=== PATIENT | female | born 1970 | race Caucasian/White ===

== ENCOUNTER → 2018-06-20 | Outpatient (CLI) | payer BC ==
--- NOTE | 2018-06-21 10:40 | MM ---
Reason for exam: screening (asymptomatic). Last mammogram was performed 2 years and 11 months ago. History: Patient is postmenopausal. Physical Findings: A clinical breast exam by your physician is recommended on an annual basis and results should be correlated with mammographic findings. MG Screening Mammo w CAD Bilateral CC and MLO view(s) were taken. Prior study comparison: July 22, 2015, bilateral MG screening mammo w CAD. March 04, 2010, bilateral digital screening mammogram. The breast tissue is heterogeneously dense. This may lower the sensitivity of mammography. There are benign appearing round calcifications in the right breast. There is no discrete abnormality. ASSESSMENT: Benign, BI-RAD 2 RECOMMENDATION: Routine screening mammogram of both breasts in 1 year.
== END | disposition home or self-care (01) ==
LOC: RADMAMWWP 13:12
PROVIDERS: ATTEND Pediatrics
DX: Z12.31 Encounter for screening mammogram for malignant neoplasm of breast (principal)
CPT/HCPCS: 77067

== ENCOUNTER 2023-05-28 12:39 | Day surgery (SDC) | payer BC, OTHER ==
[2023-05-18 11:34] VITALS: BMI 23.5
[~2023-05-28 12:39] MED LIST: LACTATED RINGERS 1,000 ML IV SCH; LIDOCAINE 1% (10MG/ML) FOR IV START INTRADERMA PRN
[2023-05-28 13:32] VITALS: TEMP 97.6
[2023-05-28] MEDS ORDERED: PROPOFOL 10 MG/ML 20 ML VIAL IV ONE (14:40)
--- NOTE | 2023-05-28 14:44 | P.GSHP ---
History of Present Illness H&P Date: 05/28/23 Chief Complaint: screening colonoscopy, GERD this is a 52-year-old female presents today for EGD and screening colonoscopy. Patient points of GERD. Past Medical History Additional Past Medical History / Comment(s): ibs , anxiety high History of Any Multi-Drug Resistant Organisms: None Reported Past Surgical History: Appendectomy, Cholecystectomy Additional Past Surgical History / Comment(s): d&c , post menopausal Past Anesthesia/Blood Transfusion Reactions: Postoperative Nausea & Vomiting (PONV) Additional Past Anesthesia/Blood Transfusion Reaction / Comment(s): no blood transfusion patient states anxiety very high "needs the better anaesthesia" Past Psychological History: Anxiety, Panic Disorder Additional Psychological History / Comment(s): very anxious, panic disorder Smoking Status: Never smoker Past Alcohol Use History: None Reported Past Drug Use History: None Reported Medications and Allergies Home Medications Medication Instructions Recorded Confirmed Type Dicyclomine [Bentyl] 10 mg PO DAILY PRN 05/18/23 05/18/23 History Escitalopram [Lexapro] 2.5 mg PO DAILY 05/18/23 05/18/23 History clonazePAM [KlonoPIN] 0.5 mg PO DAILY 05/18/23 05/18/23 History Allergies Allergy/AdvReac Type Severity Reaction Status Date / Time hydrocodone AdvReac Hallucinati Verified 05/18/23 11:22 ons Surgical - Exam Vital Signs Temp Pulse Resp BP Pulse Ox 97.6 F 72 20 109/66 99 05/28/23 13:00 05/28/23 13:00 05/28/23 13:00 05/28/23 13:00 05/28/23 13:00 - General well developed, well nourished, no distress - Eyes PERRL - ENT normal pinna - Neck no masses - Respiratory normal expansion - Cardiovascular Rhythm: regular - Abdomen Abdomen: soft, non tender Assessment and Plan Assessment: GERD. We'll perform EGD. We'll perform screening colonoscopy.
[2023-05-28 15:13] VITALS: RESP 16
--- NOTE | 2023-05-28 15:25 | P.OP ---
Date of Procedure: 05/28/23 Preoperative Diagnosis: screening colonoscopy GERD Postoperative Diagnosis: peptic ulcer disease Diverticulosis External hemorrhoids Procedure(s) Performed: EGD Colonoscopy Anesthesia: MAC Surgeon: Simeon Gilmore Pathology: other (antral ulcer) Condition: stable Disposition: PACU Description of Procedure: the patient's placed on the endoscopy table in the lateral position. She received IV sedation. The gastro-/oropharynx passed in the esophagus into the stomach. Scope was then placed through the pylorus. The first and second portion of the duodenum appeared normal. Scope was then brought back the antrum t. There appeared to be evidence of antral ulceration. A biopsies performed. The scope was unretroflexed and remainder of the stomach appeared normal. The GE junction was at 40 cm per the distal esophagusAppeared mildly inflamed. A biopsies performed. The proximal esophagus appeared normal. Scope withdrawn for patient. Next digital rectal exam performed. Is revealed internal and external hemorrhoids. The possible colonoscope was then placed patient anus and passed throughout the entire colon. Ileocecal valve was visually is. The cecum, ascending and transverse colon appeared normal. In the descending and sigmoid colon appeared to be mild diverticular changes. Scope was then brought back the rectum and this appeared normal. Scope withdrawn for patient. There were internal and external hemorrhoids noted.
[2023-05-28 15:37] VITALS: BP 123/57; PULSE 69
== END 2023-05-28 16:05 | disposition home or self-care (01) ==
LOC: ORWHC2ENDO 12:39
PROVIDERS: ATTEND Surgery
DX: Z12.11 Encounter for screening for malignant neoplasm of colon (principal); K21.00 Gastro-esophageal reflux disease with esophagitis, without bleeding; K29.60 Other gastritis without bleeding; K27.9 Peptic ulcer, site unspecified, unspecified as acute or chronic, without hemorrhage or perforation; K57.30 Diverticulosis of large intestine without perforation or abscess without bleeding; K64.4 Residual hemorrhoidal skin tags; K58.9 Irritable bowel syndrome, unspecified; F41.9 Anxiety disorder, unspecified; F41.0 Panic disorder [episodic paroxysmal anxiety]; F17.210 Nicotine dependence, cigarettes, uncomplicated; Z90.49 Acquired absence of other specified parts of digestive tract; Z98.890 Other specified postprocedural states; Z79.899 Other long term (current) drug therapy; Z88.5 Allergy status to narcotic agent
CPT/HCPCS: 88305; 88342; 45378; 43239; J2704